=== PATIENT | female | born 1975 | race Two or more races ===

== ENCOUNTER 2025-08-21 17:10 | Emergency (ER) | payer OTHER ==
[~2025-08-21] VITALS: Ht 160 cm; Wt 69.6 kg
--- NOTE | 2025-08-21 17:36 | ECG ---
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
--- NOTE | 2025-08-21 18:46 | ED.PDOC ---
History of Present Illness HPI Comments 50 y/o F presents with c/c of chest pain. Endorsement of 2x week history of pain following initial, unprovoked and atraumatic onset, while at rest in her bed. 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 Pain is stated to radiate to her left shoulder. No modifiers. No r ecent stressors, sick contacts, travel, prior ailments, or pertinent history or events endorsed. Denial of having any shortness of breath, nausea, vomiting, or further associated symptoms. Chief Complaint: Chest Pain Time Seen by MD: 18:20 Reviewed Notes: Nurses Notes, Medications, Allergies Allergies: Coded Allergies: NO KNOWN ALLERGIES (Unverified , 08/21/25) Home Meds Active Scripts Lisinopril (Lisinopril) 5 Mg Tab, 5 MG PO DAILY for 10 Days, #10 TAB Prov:DEBORAH LEA MD 08/21/25 Information Source: Patient Mode of Arrival: Ambulatory Severity: Moderate Timing: Weeks Duration: Since onset Prehospital treatment: None Past Medical History PAST MEDICAL HISTORY: Denies Surgical History: Denies all surgeries LATHE OPERATOR History: No Pertinent LATHE OPERATOR History Social History Smoker: Non-Smoker Alcohol: Denies ETOH Use Drugs: Denies Drug Use Lives In: Home All Other Systems: Reviewed and Negative (Comprehensive systems review obtained and negative except for what is stated in the HPI.) Physical Exam General Appearance: Moderate Distress HEENT: Normal ENT Inspection, Pharynx Normal, TMs Normal Neck: Full Range of Motion, Non-Tender, Normal, Normal Inspection Respiratory: Chest Non-Tender, Lungs Clear, No Accessory Muscle Use, No Respir atory Distress, Normal Breath Sounds Cardiovascular: No Edema, No JVD, No Murmur, No Gallop, Normal Peripheral Pulses, Regular Rate/Rhythm Breast Exam: Deferred Gastrointestinal: No Organomegaly, Non Tender, No Pulsatile Mass, Normal Bowel Sounds, Soft Genitalia: Deferred Pelvic: Deferred Rectal: Deferred Extremities: No calf tenderness, Normal capillary refill, Normal inspection, Normal range of motion, Non-tender, No pedal edema Musculoskeletal : Apperance: Normal Neurologic: Alert, sewing techniques demonstrator II-XII nml as Tested, No Motor Deficits, Normal Affect, Normal Mood, No Sensory Deficits Cerebellar Function: Normal Reflexes: Normal Skin: Dry, Normal Color, Warm Peripheral Pulses: 3+ Radial (R), 3+ Radial (L) Lymphatic: No Adenopathy Was a procedure done? Was a procedure done?: No EKG EKG : Pulse Rate (adult): 79 [place]: Normal Cardiac Rhythm: NSR Block: None Hypertrophy: None ST: Normal Differential Dx Considerations may include: NC, PE, ACS, URI, PNA, angina, anxiety, viral syndrome, gastritis, among others X-Ray, Labs, Meds, VS Vital Signs Date Time Temp Pulse Resp B/P (MAP) Pulse Ox O2 Delivery O2 Flow Rate FiO2 08/21/25 20:29 98.3 72 14 186/103 (130) 100 98.3 08/21/25 18:46 79 08/21/25 18:16 69 08/21/25 17:19 79 08/21/25 17:12 97.7 73 18 180/101 97 97.7 Lab Test 08/21/25 18:13 08/21/25 17:23 Range/Units Troponin I High Sensitivity < 3 L < 3 L </=34 ng/L Patient alert. Came in because of chest discomfort. EKG reviewed does not show any acute changes pain Blood pressure elevated. Cardiac marker within normal limits. She does not take any blood pressure medication. Was given clonidine. Was given prescription of lisinopril. Explained to the patient about exercise diet. Was told to follow up with her primary care physician. Was told to come back if there is any problem. Time of 1ST Reevaluation: 18:50 Reevaluation 1ST: Unchanged Patient Education/Counseling: Diagnosis, Treatment, Need For Follow Up Family Education/Counseling: No Family Present SEPSIS Sepsis Screen Date sepsis recognized/suspect: Aug 21, 2025 Time Sepsis recognized/suspect: 1713 Recent Procedure: No On Antibiotic Therapy: No Respiratory Rate >20: No Heart Rate >90: No Temp<36 C (96.8 F) or >38.3 C: No SBP <90 or MAP <65 mmHG: No New Acute Mental Status Change: No Is the patient on CPAP, BIPAP,: No Physician Orders Electrocardigram (08/21/25 18:11) Electrocardigram (08/21/25 20:11) Vital Signs Date Time Temp Pulse Resp B/P (MAP) Pulse Ox O2 Delivery O2 Flow Rate FiO2 08/21/25 20:29 98.3 72 14 186/103 (130) 100 98.3 08/21/25 18:46 79 08/21/25 18:16 69 08/21/25 17:19 79 08/21/25 17:12 97.7 73 18 180/101 97 97.7 Departure 1 Departure Time of Disposition: 21:13 Impression: Primary Impression: Hypertensive urgency Additional Impression: Musculoskeletal chest pain Disposition: HOME / SELF CARE / HOMELESS Condition: Good e-Prescriptions Lisinopril (Lisinopril) 5 Mg Tab 5 MG PO DAILY for 10 Days, #10 TAB Prov: DEBORAH LEA MD 08/21/25 Discharged With: Self Critical Care Note Critical Care Time?: No Stability Stability form required: No Heart Score Heart Score: Heart Score Response (Comments) Value History Slightly Suspicious 0 EKG Normal 0 Age 45-64 1 Risk Factors No known risk factors 0 Troponin Normal limit 0 Total 1 I personally scribed for DEBORAH LEA MD ([email or web address]) on 08/21/25 at 18:46. Electronically submitted by Jose G Obrien [email or web address]). DEBORAH LEA MD Aug 21, 2025 18:46
[2025-08-21] MEDS ORDERED: LISI-275 PO (21:14)
[2025-08-21] MEDS ORDERED: cloNIDine 0.1 mg/24hr 7 DAY PATCH TD ONE (21:30)
[2025-08-21 22:31] VITALS: BP 170/96; PULSE 67; RESP 14; TEMP 98; O2SAT 100
--- NOTE | 2025-08-22 06:49 | ECG ---
[facility] Test Date: 2025-08-21 Test Time: 18:16:41 Pat Name: RADHA HARRIS Department: [facility] ED Patient ID: [id number] Room: Gender: F Palliative Care Nurse Practitioner: JULIO : 1975 Requested By: LISA SAM Order Number: [id number] Reading MD: Measurements Intervals [place] Rate: 69 P: 43 [place]: 152 QRS: 41 QRSD: 105 T: 60 QT: 375 QTc: 402 Interpretive Statements Sinus rhythm Low voltage, precordial leads Abnormal R-wave progression, early transition Please click the below link to view image of tracing.
--- NOTE | 2025-08-22 06:49 | ECG ---
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
[2025-08-22] MEDS ORDERED: FERR-7 PO (18:46)
== END 2025-08-21 22:32 | disposition home or self-care (01) ==
LOC: EEVIPCON 17:10 → ER 17:10
DX: I16.0 Hypertensive urgency (principal); R07.89 Other chest pain; Z79.899 Other long term (current) drug therapy
CPT/HCPCS: 36415; 84484; 93005

== ENCOUNTER 2025-08-22 10:18 | Inpatient (IN) | payer OTHER ==
[~2025-08-22] VITALS: Ht 160 cm; Wt 84.4 kg
[~2025-08-22 10:18] MED LIST: LISI-275 PO
[2025-08-22 11:11] LABS: Hematocrit 39.0 % (36.0-46.0); Hemoglobin 13.2 g/dL (12.2-16.2); Mean Corpuscular Hemoglobin 29.6 pg (28.0-32.0); Mean Corpuscular Volume 87.1 fL (80.0-100.0); Nucleated Red Blood Cells % 0.1 %
--- NOTE | 2025-08-22 11:19 | ED.PDOC ---
HPI Comments 50-year-old female who comes in with chief complaint of chest pain last night. The patient states that the pain is now radiating to the left arm as well as numbness. The patient was actually seen here at [facility] last night where she had a workup done. At that time the patient's blood pressure was also elevated. She was then worked up and discharged home to follow up with her primary care doctor. She states that the pain has been somewhat persistent. She is having some mild nausea but no fever or chills. The patient states that the pain is a 6/10. Upon arrival, the patient is still stating that the pain is persistent and the blood pressure is still also elevated. Chief Complaint: Chest Pain Time Seen by MD: 10:22 Reviewed Notes: Nurses Notes, Medications, Allergies (No allergies to medications) Allergies: Coded Allergies: NO KNOWN ALLERGIES (Unverified , 08/21/25) Home Meds Active Scripts Lisinopril (Lisinopril) 5 Mg Tab, 5 MG PO DAILY for 10 Days, #10 TAB Prov:DEBORAH LEA MD 08/21/25 Information Source: Patient Mode of Arrival: Ambulatory Severity: Moderate Timing: Days Duration: Since onset Prehospital treatment: None Location: Chest (L) Quality: Squeezing, Pressure Onset: At Rest Cardiac Risk Factors: None PE Risk Factors: None History of: Similar pain in past Modifying Factors: Nothing Associated Signs and Symptoms: N/V (Nausea but no vomiting) Past Medical History PAST MEDICAL HISTORY: HTN Surgical History: Denies all surgeries PAYMENT MANAGER History: No Pertinent PAYMENT MANAGER History Family History Family History: Family hx of DM, Family hx of heart william, Family hx of HTN Social History Smoker: Non-Smoker Alcohol: Denies ETOH Use Drugs: Denies Drug Use Lives In: Home Constitutional: denies: chills, diaphoresis, fatigue, fever, malaise, sweats, weakness, others EENTM: denies: blurred vision, double vision, ear bleeding, ear discharge, ear drainage, ear pain, ear ringing, eye pain, eye redness, hearing loss, mouth pain, mouth swelling, nasal discharge, nose bleeding, nose congestion, nose pain, photophobia, tearing, throat pain, throat swelling, voice changes, others Respiratory: denies: cough, hemoptysis, orthopnea, SOB at rest, shortness of breath, SOB with excertion, stridor, wheezing, others Cardiovascular: denies: chest pain, dizzy spells, diaphoresis, Dyspnea on exertion, edema, irregular heart beat, left arm pain, lightheadedness, palpitations, PND, syncope, others Gastrointestinal: denies: abdomen distended, abdominal pain, blood streaked bowels, constipated, diarrhea, dysphagia, difficulty swallowing, hematemesis, melena, nausea, poor appetite, poor fluid intake, rectal bleeding, rectal pain, vomiting, others Genitourinary: denies: abnormal vagina bleeding, burning, dyspareunia, dysuria, flank pain, frequency, hematuria, incontinence, pain, , vagina discharge, urgency, others Neurological: denies: dizziness, fainting, headache, left sided numbness, left sided weakness, numbness, paresthesia, pre-existing deficit, right sided numbness, right sided weakness, seizure, speech problems, tingling, tremors, weakness, others Musculoskeletal: denies: back pain, gout, joint pain, joint swelling, muscle pain, muscle stiffness, neck pain, others Integumetry: denies: bruises, change in color, change in hair/nails, dryness, laceration, lesions, lumps, rash, wounds, others Allergic/Immunocompromised: denies: Difficulty Healing, Frequent Infections, Hives, Itching, others Hematologic/Lymphatic: denies: anemia, blood clots, easy bleeding, easy bruising, swollen glands, others Endocrine: denies: excessive hunger, excessive sweating, excessive thirst, excessive urination, flushing, intolerance to cold, intolerance to heat, u nexplained weight gain, unexplained weight loss, others Psychiatric: denies: anxiety, bipolar disorder, depression, hopeless, panic disorder, schizophrenia, sleepless, suicidal, others Physical Exam General Appearance: Moderate Distress HEENT: Normal ENT Inspection, Pharynx Normal, TMs Normal Neck: Full Range of Motion, Non-Tender, Normal, Normal Inspection Respiratory: Chest Non-Tender, Lungs Clear, No Accessory Muscle Use, No Respiratory Distress, Normal Breath Sounds Cardiovascular: No Edema, No JVD, No Murmur, No Gallop, Normal Peripheral Pulses, Regular Rate/Rhythm Breast Exam: Deferred Gastrointestinal: No Organomegaly, Non Tender, No Pulsatile Mass, Normal Bowel Sounds, Soft Genitalia: Deferred Pelvic: Deferred Rectal: Deferred Extremities: No calf tenderness, Normal capillary refill, Normal inspection, Normal range of motion, Non-tender, No pedal edema Musculoskeletal : Apperance: Normal Neurologic: Alert, house painter 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 Was a procedure done?: No CP Differential Dx Differential Diagnosis: Angina, NC, Pulmonary Embolus Differential Diagnosis: CHF Differential Diagnosis: Pericarditis X-Ray, Labs, Meds, VS Vital Signs Date Time Temp Pulse Resp B/P (MAP) Pulse Ox O2 Delivery O2 Flow Rate FiO2 08/22/25 14:00 62 15 123/80 (94) 99 08/22/25 13:23 58 08/22/25 13:00 66 15 124/84 (97) 100 08/22/25 12:50 65 08/22/25 12:00 64 14 138/98 (111) 98 08/22/25 11:20 70 16 98 Room Air* 0 21 08/22/25 11:20 98.0 70 16 135/92 (106) 98 98.0 08/22/25 11:20 63 08/22/25 11:19 68 08/22/25 10:23 68 08/22/25 10:21 98.1 83 16 151/101 98 98.1 Lab Test 08/22/25 14:02 08/22/25 11:56 08/22/25 11:27 08/22/25 10:56 Range/Units Troponin I High Sensitivity < 3 L < 3 L < 3 L </=34 ng/L Urine Color Light-yellow Yellow Urine Clarity Clear Clear Urine pH 5.5 5.0-9.0 Urine Specific [place] 1.017 1.001-1.035 Urine Protein Negative Negative Urine Ketones 1+ H Negative Urine Blood 1+ H Negative /uL Urine Nitrite Negative Negative Urine Bilirubin Negative Negative Urine Urobilinogen Normal Negative mg/dL Urine Leukocyte Esterase 1+ Negative /uL Urine RBC 13 0 - 4 /hpf Urine Microscopic WBC 1 0-5 /HPF Urine Squamous Epithelial Cells Few <5 /hpf Urine Bacteria Few H None Seen /hpf Urine Glucose Normal Normal mg/dL White Blood Count 2.6 L 4.4-10.8 10^3/uL Red Blood Count 4.48 4.0-5.20 10^6/uL Hemoglobin 13.2 12.2-16.2 g/dL Hematocrit 39.0 36.0-46.0 % Mean Corpuscular Volume 87.1 80.0-100.0 fL Mean Corpuscular Hemoglobin 29.6 28.0-32.0 pg Mean Corpuscular Hemoglobin Concent 34.0 32.0-36.0 g/dL Red Cell Distribution Width 13.7 11.8-14.3 % Platelet Count 223 140-450 10^3/uL Mean Platelet Volume 7.0 6.9-10.8 fL Neutrophils (%) (Auto) 42.3 37.0-80.0 % Lymphocytes (%) (Auto) 46.3 10.0-50.0 % Monocytes (%) (Auto) 11.1 0.0-12.0 % Eosinophils (%) (Auto) 0.0 0.0-7.0 % Basophils (%) (Auto) 0.3 0.0-2.0 % Neutrophils # (Auto) 1.1 L 1.6-8.6 10 ^3/uL Lymphocytes # (Auto) 1.2 0.4-5.4 10 ^3/uL Monocytes # (Auto) 0.3 0-1.3 10 ^3/uL Eosinophils # (Auto) 0 0-0.8 10 ^3/uL Basophils # (Auto) 0 0-0.2 10 ^3/uL Nucleated Red Blood Cells 0.1 % Sodium Level 140 136-145 mmol/L Potassium Level 3.8 3.5-5.1 mmol/L Chloride Level 105 98-107 mmol/L Carbon Dioxide Level 26 20-31 mmol/L Anion Gap 9 5-15 Blood Urea Nitrogen 16 9-23 mg/dL Creatinine 0.79 0.550-1.02 mg/dL Glomerular Filtration Rate Calc 92 >90 mL/min BUN/Creatinine Ratio 20.3 H 10.0-20.0 Serum Glucose 84 74-106 mg/dL Calcium Level 9.3 8.7-10.4 mg/dL Current Medications Medications (Trade) Dose Ordered Sig/Halie Route Start Time Stop Time Status Last Admin Aspirin 162 mg ONCE ONCE PO 08/22/25 10:45 08/22/25 10:46 DC 08/22/25 11:36 IV Hep-Lock was established. The patient's CBC shows a white blood cell count of 2.6 The rest of the CBC is within normal limits The patient was given aspirin here in the emergency department's The patient's troponin level is negative x2 The patient is admitted We are concerned that the patient has a accelerated hypertension and with the chest pain we are going to keep the patient in the hospital Images Reviewed?: Images reviewed and evaluated by me Time of 1ST Reevaluation: 11:18 Reevaluation 1ST: Unchanged Patient Education/Counseling: Diagnosis, Treatment, Prognosis Family Education/Counseling: No Family Present SEPSIS Sepsis Screen Date sepsis recognized/suspect: Aug 22, 2025 Time Sepsis recognized/suspect: 102 Recent Procedure: No On Antibiotic Therapy: No Respiratory Rate >20: No Heart Rate >90: No Temp<36 C (96.8 F) or >38.3 C: No SBP <90 or MAP <65 mmHG: No New Acute Mental Status Change: No Is the patient on CPAP, BIPAP,: No Physician Orders Heplock Iv (08/22/25 10:44) Material Control Manager (08/22/25 10:44) Blood Pressure (08/22/25 10:44) Pulse Oximetry (08/22/25 10:44) Chest Portable (08/22/25 11:19) Vital Signs Date Time Temp Pulse Resp B/P (MAP) Pulse Ox O2 Delivery O2 Flow Rate FiO2 08/22/25 14:00 62 15 123/80 (94) 99 08/22/25 13:23 58 08/22/25 13:00 66 15 124/84 (97) 100 08/22/25 12:50 65 08/22/25 12:00 64 14 138/98 (111) 98 08/22/25 11:20 70 16 98 Room Air* 0 21 08/22/25 11:20 98.0 70 16 135/92 (106) 98 98.0 08/22/25 11:20 63 08/22/25 11:19 68 08/22/25 10:23 68 08/22/25 10:21 98.1 83 16 151/101 98 98.1 Laboratory Tests Test 08/22/25 10:56 White Blood Count 2.6 10^3/uL (4.4-10.8) L Medications Medications Dose Ordered Sig/Halie Route Start Time Stop Time Status Last Admin Dose Admin Aspirin 162 mg ONCE ONCE PO 08/22/25 10:45 08/22/25 10:46 DC 08/22/25 11:36 Departure 1 Departure Time of Disposition: 16:03 Impression: Primary Impression: Acute chest pain Additional Impressions: Acute myocardial ischemia Accelerated hypertension Disposition: ADMITTED INPATIENT Admit to: Tele Condition: Fair Critical Care Note Critical Care Time?: No Stability Stability form required: Yes Unstable for transfer: Telemetry monitoring (Telemetry monitoring required), ED Physician Assesment (Clinical assesment) Heart Score Heart Score: Heart Score Response (Comments) Value History Moderate Suspicious 1 EKG Repolarization Disturb 1 Age 45-64 1 Risk Factors 1 or 2 risk factors 1 Troponin Normal limit 0 Total 4 GINA URIBE MD Aug 22, 2025 11:19
[2025-08-22 11:20] VITALS: PULSE 70; RESP 16; O2SAT 98
--- NOTE | 2025-08-22 11:22 | ECG ---
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
[2025-08-22 11:24] LABS: Chloride 105 mmol/L (98-107); Potassium 3.8 mmol/L (3.5-5.1); Sodium 140 mmol/L (136-145)
[2025-08-22 11:25] LABS: Anion Gap 9 (5-15); Calcium 9.3 mg/dL (8.7-10.4); Carbon Dioxide 26 mmol/L (20-31)
[2025-08-22 11:30] LABS: BUN/Creatinine Ratio 20.3 (10.0-20.0); Blood Urea Nitrogen 16 mg/dL (9-23); Glucose 84 mg/dL (74-106)
--- NOTE | 2025-08-22 12:02 | DVH ---
CHEST RADIOGRAPH Indication: CP Technique: Single frontal view of the chest was obtained COMPARISON: XY CHEST XRAY 1 VIEW on DOS: 04/05/25 FINDINGS: Lines and Tubes: None Lungs: Clear Pleura: No effusion. No pneumothorax. Cardiomediastinal contours: Unremarkable Bones: Unremarkable IMPRESSION: 1. No acute disease.
--- NOTE | 2025-08-22 13:24 | ECG ---
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
--- NOTE | 2025-08-22 13:52 | ECG ---
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
[2025-08-22 15:18] LABS: Urine Protein, UAD Negative (Negative)
--- NOTE | 2025-08-22 17:09 | DVHHP2 ---
Admitting Diagnosis: chest pain History of Present Illness 50-year-old female who comes in with chief complaint of chest pain last night. The patient states that the pain is now radiating to the left arm as well as numbness. The patient was actually seen here at [facility] last night where she had a workup done. At that time the patient's blood pressure was also elevated. She was then worked up and discharged home to follow up with her primary care doctor. She states that the pain has been somewhat persistent. She is having some mild nausea but no fever or chills. The patient states that the pain is a 6/10. Upon arrival, the patient is still stating that the pain is persistent and the blood pressure is still also elevated. While in the emergency department the patient was evaluated by the provider, As per provider: Labs, vital signs, and imagining monitored. Patient will be admitted for further evaluation and treatment. I discussed admission with the patient/family and is in agreement to treatment plan Allergies: Coded Allergies: NO KNOWN ALLERGIES (Unverified , 08/21/25) Home Meds Active Scripts Lisinopril (Lisinopril) 5 Mg Tab, 5 MG PO DAILY for 10 Days, #10 TAB Prov:DEBORAH LEA MD 08/21/25 Reported Medications Ferrous Sulfate (Iron) 325 Mg Tab, 325 MG PO DAILY, TAB 08/22/25 Current Medications Current Medications Medications (Trade) Dose Ordered Sig/Halie Route PRN Reason Start Time Stop Time Status Last Admin Temazepam (Restoril) 15 mg QHSP PRN PO FOR INSOMNIA 08/22/25 22:00 Enoxaparin Sodium (Lovenox) 40 mg DAILY SC 08/23/25 10:00 Pantoprazole Sodium (Protonix) 40 mg DAILY IV 08/23/25 10:00 08/23/25 09:05 Lisinopril (Zestril Tablet) 5 mg DAILY PO 08/23/25 10:00 08/23/25 18:05 DC 08/23/25 09:05 Lisinopril (Zestril Tablet) 10 mg BID PO 08/23/25 22:00 Review of Systems Constitutional: denies chills, denies fever, denies malaise Eyes: denies eye pain, denies vision change ENT: denies ear pain, denies headache, denies nasal congestion, denies painful swallowing, denies voice change Cardiovascular: denies chest pain, denies edema, denies orthopnea, denies palpitations, denies paroxysmal nocturnal dyspnea Respiratory: denies cough, denies shortness of breath Gastrointestinal: denies constipation, denies diarrhea, denies nausea, denies vomiting Genitourinary: denies dysuria, denies frequent urination, denies urethral discharge Musculoskeletal: denies back pain, denies joint pain, denies muscle pain Skin: denies bruising, denies itching, denies rash Neurological: denies focal weakness, denies headache, denies sensory changes Psychiatric: denies anxiety, denies depression Endocrine: denies polydipsia, denies polyuria Hematologic/Lymphatic: denies easy bleeding, denies easy bruising, denies enlarged lymph nodes Allergic/Immunologic: denies allergy, denies hives Vital Signs Vital Signs Date Time Temp Pulse Resp B/P (MAP) Pulse Ox O2 Delivery O2 Flow Rate FiO2 08/23/25 17:00 97.8 75 17 112/74 (87) 97 97.8 08/23/25 08:00 Room Air* 0 21 Physical Exam General Appearance: alert, no distress HEENT: EOMI, PERRLA, normal external inspect of ears, no icterus, no nasal drainage Neck: no carotid bruit, no jugular venous distention (JVD), no lymphadenopathy Chest: normal thorax Respiratory: clear to auscultation, normal air movement Cardiovascular: regular rate and rhythm, no diastolic murmur, no jugular venous distention (JVD), no rub, no systolic murmur Abdominal: soft, no hepatomegaly, no mass, no splenomegaly, no tenderness Genitourinary: grossly normal external Musculoskeletal: no joint tenderness, no swelling Extremities: normal pulses, no calf tenderness, no clubbing, no cyanosis, no edema Skin: no bruising, no jaundice, no rash Neurological: alert, No focal deficit SEPSIS Sepsis Screen Date sepsis recognized/suspect: Aug 22, 2025 Time Sepsis recognized/suspect: 102 Recent Procedure: No On Antibiotic Therapy: No Respiratory Rate >20: No Heart Rate >90: No Temp<36 C (96.8 F) or >38.3 C: No SBP <90 or MAP <65 mmHG: No New Acute Mental Status Change: No Is the patient on CPAP, BIPAP,: No Physician Orders Heplock Iv (08/22/25 10:44) Courtroom Clerk (08/22/25 10:44) Blood Pressure (08/22/25 10:44) Pulse Oximetry (08/22/25 10:44) Chest Portable (08/22/25 11:19) Admit (08/22/25 17:04) Code Status (08/22/25 17:04) Hydrocodone-Acet 5/325mg Tab ([place] (08/22/25 17:15) Temazepam (Restoril) (08/22/25 22:00) Ondansetron Hcl (Zofran) (08/22/25 17:15) Docusate Sodium Capsule (Colace Capsule) (08/22/25 17:15) Enoxaparin Sodium (Lovenox) (08/23/25 10:00) Cardiac Diet-2gna,Lofat,Lochol (08/22/25 Dinner) Carotid Duplx W Color Dop (08/22/25 17:04) Condition: Stable (08/22/25 17:04) Acetaminophen Tablet (Tylenol Tablet) (08/22/25 17:15) Morphine Sulfate Injection (08/22/25 17:15) Sequential Compression Device (08/22/25 ) *Consult Dr. Franko Tyler (08/22/25 17:04) Pantoprazole (Protonix) (08/23/25 10:00) Nitroglycerin Sublingual (Ntrostat Subli (08/22/25 17:15) Morphine Sulfate Injection (08/22/25 17:15) Stat Ekg For Chest Pain (08/22/25 17:04) Notify Md Of Changes From Base (08/22/25 17:04) Sales And Marketing Executive For 24 Hours (08/22/25 17:04) Emergency Dysrhythmia Protocol (08/22/25 17:04) Rhythm Strips Once Every Shift (08/22/25 17:04) Oxygen By Nasal Cannula (08/22/25 17:04) Hydralazine Injection (Apresoline Inject (08/22/25 17:15) * [employer] Service [employer] Mechanic Consult (08/22/25 ) Lisinopril Tablet (Zestril Tablet) (08/23/25 22:00) L Breast Ultrasound (08/23/25 18:02) Vital Signs Date Time Temp Pulse Resp B/P (MAP) Pulse Ox O2 Delivery O2 Flow Rate FiO2 08/23/25 17:00 97.8 75 17 112/74 (87) 97 97.8 08/23/25 13:00 98.0 82 17 123/81 (95) 97 98.0 08/23/25 11:33 76 17 91 08/23/25 09:05 141/96 08/23/25 08:45 97.9 70 18 141/96 (111) 97 97.9 08/23/25 08:00 Room Air* 0 21 08/23/25 08:00 70 08/23/25 05:00 97.8 53 18 119/82 (94) 99 97.8 08/23/25 01:00 98.0 82 17 123/81 (95) 97 98.0 08/23/25 01:00 98.1 64 18 118/81 (93) 98 98.1 08/22/25 21:00 97.8 68 18 125/90 (102) 98 97.8 08/22/25 20:00 Room Air* 0 21 08/22/25 20:00 81 08/22/25 18:16 97.8 77 18 150/102 (118) 97 97.8 08/22/25 18:16 67 18 97 Room Air* 0 21 08/22/25 17:31 76 14 134/87 (103) 97 08/22/25 17:00 76 14 134/87 (103) 97 08/22/25 16:00 65 15 123/86 (98) 99 08/22/25 15:00 67 14 119/84 (96) 99 08/22/25 14:00 62 15 123/80 (94) 99 08/22/25 13:23 58 08/22/25 13:00 66 15 124/84 (97) 100 08/22/25 12:50 65 08/22/25 12:00 64 14 138/98 (111) 98 08/22/25 11:20 70 16 98 Room Air* 0 21 08/22/25 11:20 98.0 70 16 135/92 (106) 98 98.0 08/22/25 11:20 63 08/22/25 11:19 68 08/22/25 10:23 68 08/22/25 10:21 98.1 83 16 151/101 98 98.1 Laboratory Tests Test 08/22/25 10:56 08/23/25 07:11 White Blood Count 2.6 10^3/uL (4.4-10.8) L 2.5 10^3/uL (4.4-10.8) L Medications Medications Dose Ordered Sig/Halie Route Start Time Stop Time Status Last Admin Dose Admin Lisinopril 5 mg DAILY PO 08/23/25 10:00 08/23/25 18:05 DC 08/23/25 09:05 Pantoprazole Sodium 40 mg DAILY IV 08/23/25 10:00 08/23/25 09:05 Results Labs Test 08/23/25 07:11 08/22/25 14:02 08/22/25 11:27 Range/Units White Blood Count 2.5 L 4.4-10.8 10^3/uL Red Blood Count 4.56 4.0-5.20 10^6/uL Hemoglobin 13.5 12.2-16.2 g/dL Hematocrit 39.2 36.0-46.0 % Mean Corpuscular Volume 86.0 80.0-100.0 fL Mean Corpuscular Hemoglobin 29.6 28.0-32.0 pg Mean Corpuscular Hemoglobin Concent 34.4 32.0-36.0 g/dL Red Cell Distribution Width 13.6 11.8-14.3 % Platelet Count 205 140-450 10^3/uL Mean Platelet Volume 6.7 L 6.9-10.8 fL Neutrophils (%) (Auto) 46.1 37.0-80.0 % Lymphocytes (%) (Auto) 41.5 10.0-50.0 % Monocytes (%) (Auto) 12.1 H 0.0-12.0 % Eosinophils (%) (Auto) 0.0 0.0-7.0 % Basophils (%) (Auto) 0.3 0.0-2.0 % Neutrophils # (Auto) 1.1 L 1.6-8.6 10 ^3/uL Lymphocytes # (Auto) 1.0 0.4-5.4 10 ^3/uL Monocytes # (Auto) 0.3 0-1.3 10 ^3/uL Eosinophils # (Auto) 0 0-0.8 10 ^3/uL Basophils # (Auto) 0 0-0.2 10 ^3/uL Nucleated Red Blood Cells 0.2 % Sodium Level 140 136-145 mmol/L Potassium Level 4.5 3.5-5.1 mmol/L Chloride Level 106 98-107 mmol/L Carbon Dioxide Level 25 20-31 mmol/L Anion Gap 9 5-15 Blood Urea Nitrogen 15 9-23 mg/dL Creatinine 0.88 0.550-1.02 mg/dL Glomerular Filtration Rate Calc 81 >90 mL/min BUN/Creatinine Ratio 17.0 10.0-20.0 Serum Glucose 77 74-106 mg/dL Hemoglobin A1c 5.1 <5.7 % A1C Calcium Level 9.2 8.7-10.4 mg/dL Total Bilirubin 0.9 0.2-1.0 mg/dL Aspartate Amino Transferase (AST) 26 13-40 U/L Alanine Aminotransferase (ALT) 27 7-40 U/L Alkaline Phosphatase 75 46-116 U/L Total Protein 9.6 H 5.7-8.2 g/dL Albumin 4.2 3.2-4.8 g/dL Triglycerides Level 87 < 150 mg/dL Cholesterol Level 187 < 200 mg/dL LDL Cholesterol 137 H < 100 mg/dL HDL Cholesterol 40 40-59 mg/dL Beta HCG, Quantitative 2.8 1.5-4.2 mIU/mL Troponin I High Sensitivity < 3 L </=34 ng/L Urine Color Light-yellow Yellow Urine Clarity Clear Clear Urine pH 5.5 5.0-9.0 Urine Specific [place] 1.017 1.001-1.035 Urine Protein Negative Negative Urine Ketones 1+ H Negative Urine Blood 1+ H Negative /uL Urine Nitrite Negative Negative Urine Bilirubin Negative Negative Urine Urobilinogen Normal Negative mg/dL Urine Leukocyte Esterase 1+ Negative /uL Urine RBC 13 0 - 4 /hpf Urine Microscopic WBC 1 0-5 /HPF Urine Squamous Epithelial Cells Few <5 /hpf Urine Bacteria Few H None Seen /hpf Urine Glucose Normal Normal mg/dL Urine Test Negative Negative Microbiology Date/Time Source Procedure Growth Status 08/23/25 06:25 Nose MRSA Screen - Final Complete Plan 1. Unstable angina Monitor, cardiology consult, echocardiogram, plan for stress test, PPI, DVT prophylaxis, lipid panel, monitor on EKG 2. Obesity Monitor 3. Benign essential HTN Monitor, antihypertensives Plan discussed with: Patient, Other KRAFT,EVELYNE M CEILING INSTALLER Aug 22, 2025 17:09
[2025-08-22] MEDS ORDERED: hydrALAZINE HCL 20 MG/ML VL IV PRN (17:15)
[2025-08-22] MEDS ORDERED: NITROGLYCERIN 0.4 MG SL TAB SL PRN (17:15)
[2025-08-22] MEDS ORDERED: DOCUSATE SOD 100 MG CAP PO PRN (17:15)
[2025-08-22] MEDS ORDERED: MORPHINE SULFATE INJ 2 MG/ml SYRG IV PRN ×2 (17:15)
[2025-08-22] MEDS ORDERED: ONDANSETRON HCL 4 MG/2 ML VIAL IV PRN (17:15)
[2025-08-22 18:16] VITALS: BP 150/102; PULSE 67; PULSE 77; RESP 18; TEMP 97.8; O2SAT 97
[2025-08-22] MEDS ORDERED: FERR-7 PO (18:46)
[2025-08-22] MEDS: HYDROcodone-ACET 5/325MG TAB PO PRN (18:56)
[2025-08-22 20:00] VITALS: PULSE 81
[2025-08-22 21:00] VITALS: BP 125/90; PULSE 68; RESP 18; TEMP 97.8; O2SAT 98
[2025-08-22] MEDS ORDERED: TEMAZEPAM 15 MG CAP PO PRN (22:00)
--- NOTE | 2025-08-22 23:20 | DVH ---
Carotid Duplex Clinical History: angina Comparison: None Technique: Duplex Doppler evaluation of the extracranial carotid and vertebral arteries including color Doppler and spectral/pulsed waveform analysis was performed. Findings: RIGHT SIDE: The peak systolic velocities are 80 cm/s in the CCA, 65 cm/s in the ICA. The ICA/CCA ratio is 0.8. The external carotid artery is patent with peak systolic velocity of 87 cm/s proximally. There is appropriate antegrade flow in the right vertebral artery. LEFT SIDE: The peak systolic velocities are 73 cm/s in the CCA, 71 cm/s in the ICA. The ICA/CCA ratio is 1.0. The external carotid artery is patent with peak systolic velocity of 82 cm/s proximally. There is appropriate antegrade flow in the left vertebral artery. IMPRESSION: 1. No hemodynamically significant stenosis noted in the right carotid system. 2. No hemodynamically significant stenosis noted in the left carotid system. Reference: Radiology 2003; 229:340-346 Normal ICA PSV is <125 cm/sec and no plaque or intimal thickening is visible sonographically additional criteria include ICA/CCA PSV ratio <2.0 and ICA EDV <40 cm/sec <50% ICA stenosis ICA PSV is <125 cm/sec and plaque or intimal thickening is visible sonographically additional criteria include ICA/CCA PSV ratio <2.0 and ICA EDV <40 cm/sec 50-69% ICA stenosis ICA PSV is 125-230 cm/sec and plaque is visible sonographically additional criteria include ICA/CCA PSV ratio of 2.0-4.0 and ICA EDV of 40-100 cm/sec 70% ICA stenosis but less than near occlusion ICA PSV is >230 cm/sec and visible plaque and luminal narrowing are seen at mar-scale and color Dopp ler ultrasound (the higher the Doppler parameters lie above the threshold of 230 cm/sec, the greater the likelihood of severe disease) additional criteria include ICA/CCA PSV ratio >4 and ICA EDV >100 cm/sec
[2025-08-23] VITALS (10 sets, daily range): BP systolic 112–150; BP diastolic 74–98; PULSE 53–82; RESP 16–18; TEMP 97.2–98.1; O2SAT 97–99
[2025-08-23 07:36] LABS: Hematocrit 39.2 % (36.0-46.0); Hemoglobin 13.5 g/dL (12.2-16.2); Mean Corpuscular Hemoglobin 29.6 pg (28.0-32.0); Mean Corpuscular Volume 86.0 fL (80.0-100.0); Nucleated Red Blood Cells % 0.2 %
[2025-08-23 07:46] LABS: Alanine Aminotransferase 27 U/L (7-40); Albumin 4.2 g/dL (3.2-4.8); Alkaline Phosphatase 75 U/L (46-116); Anion Gap 9 (5-15); BUN/Creatinine Ratio 17.0 (10.0-20.0); Blood Urea Nitrogen 15 mg/dL (9-23); Calcium 9.2 mg/dL (8.7-10.4); Carbon Dioxide 25 mmol/L (20-31); Chloride 106 mmol/L (98-107); Glucose 77 mg/dL (74-106); Potassium 4.5 mmol/L (3.5-5.1); Sodium 140 mmol/L (136-145)
[2025-08-23 07:47] LABS: Bilirubin, Total 0.9 mg/dL (0.2-1.0); Total Protein 9.6 g/dL (5.7-8.2)
[2025-08-23] MEDS: ACETAMINOPHEN 325 MG TAB PO PRN (08:18)
[2025-08-23] MEDS: LISINOPRIL 5 MG TAB PO SCH ×2 (09:05→21:46)
[2025-08-23] MEDS: PANTOPRAZOLE 40 MG/10 ML VIAL INJ IV SCH (09:05)
[2025-08-23] MEDS: ENOXAPARIN SOD 40 MG/0.4 ML SYRINGE SC SCH (09:10)
--- NOTE | 2025-08-23 10:28 | DVHINCON2 ---
Date of service: Aug 23, 2025 History of Present Illness HPI 50-year-old female presented with few days of chest discomfort. Chest discomfort was tapping nature and was associated with radiation to the back and left arm numbness. Did have headaches with that. Was found to have high blood pressure on admission. Cardiology is involved for cardiac aspects of care. Serial high sensitive troponin has remained negative. Denies previous cardiac history. 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 As per patient, she did have EKG performed few days back and there was question if it revealed delta waves. Patient also complains of occasional palpitation when lying down (going back for only few months). Denies loss of consciousness. She also mentions occasions of vertigo (room spinning). Does have good baseline functional capacity. Never glover d cardiac workup before. Denies exertional component to the picture. Home Meds Active Scripts Lisinopril (Lisinopril) 5 Mg Tab, 5 MG PO DAILY for 10 Days, #10 TAB Prov:DEBORAH LEA MD 08/21/25 Reported Medications Ferrous Sulfate (Iron) 325 Mg Tab, 325 MG PO DAILY, TAB 08/22/25 Past Medical History Others Past medical history includes iron deficiency anemia. There is question about hypertension (was never on any medications prior to this visit). 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 Denies surgeries. Quit smoking few years back (was never long-term smoker). Denies substance abuse. Denies alcohol abuse. Family history includes father with history of heart failure had pacemaker implantation. There is also history of hypertension and diabetes in family. She is perimenopausal. Patient Family History: Diabetes mellitus G8 MOTHER Hypertension G8 MOTHER Pacemaker G8 FATHER Smoker: Quit Alocohol: None Drugs: None Review of Systems Constitutional: No symptom reported Ears, Nose, & Throat: No symptom reported Cardiovascular: Chest Pain Hemotologic/Lymphatic: Anemia All Other Systems Fourteen point review of system was performed. Relevant findings as per above and as per HPI. Otherwise negative. H&P Exam Vital Signs Vital Signs Date Time Temp Pulse Resp B/P (MAP) Pulse Ox O2 Delivery O2 Flow Rate FiO2 08/23/25 09:05 141/96 08/23/25 08:45 97.9 70 18 97 97.9 08/22/25 20:00 Room Air* 0 21 General Appeara: Well developed Head Exam: Normal inspection Eye Exam: bilateral eye PERRL Mouth: Normal Inspection Pulmonary/Respiratory: Lungs clear Cardiovascular/Chest: Regular rate, Systolic murmur Peripheral Pulses: 2+ carotid (R), 2+ carotid (L), 2+ femoral (R), 2+ femoral (L) Abdominal Exam: Normal bowel sounds, Soft Neuro/Mental St: Alert, Oriented Appearance: Appropriate appearance Eye contact/ Speech: Cooperative Labs/Xrays Labs Test 08/23/25 07:11 08/22/25 14:02 08/22/25 11:27 Range/Units White Blood Count 2.5 L 4.4-10.8 10^3/uL Red Blood Count 4.56 4.0-5.20 10^6/uL Hemoglobin 13.5 12.2-16.2 g/dL Hematocrit 39.2 36.0-46.0 % Mean Corpuscular Volume 86.0 80.0-100.0 fL Mean Corpuscular Hemoglobin 29.6 28.0-32.0 pg Mean Corpuscular Hemoglobin Concent 34.4 32.0-36.0 g/dL Red Cell Distribution Width 13.6 11.8-14.3 % Platelet Count 205 140-450 10^3/uL Mean Platelet Volume 6.7 L 6.9-10.8 fL Neutrophils (%) (Auto) 46.1 37.0-80.0 % Lymphocytes (%) (Auto) 41.5 10.0-50.0 % Monocytes (%) (Auto) 12.1 H 0.0-12.0 % Eosinophils (%) (Auto) 0.0 0.0-7.0 % Basophils (%) (Auto) 0.3 0.0-2.0 % Neutrophils # (Auto) 1.1 L 1.6-8.6 10 ^3/uL Lymphocytes # (Auto) 1.0 0.4-5.4 10 ^3/uL Monocytes # (Auto) 0.3 0-1.3 10 ^3/uL Eosinophils # (Auto) 0 0-0.8 10 ^3/uL Basophils # (Auto) 0 0-0.2 10 ^3/uL Nucleated Red Blood Cells 0.2 % Sodium Level 140 136-145 mmol/L Potassium Level 4.5 3.5-5.1 mmol/L Chloride Level 106 98-107 mmol/L Carbon Dioxide Level 25 20-31 mmol/L Anion Gap 9 5-15 Blood Urea Nitrogen 15 9-23 mg/dL Creatinine 0.88 0.550-1.02 mg/dL Glomerular Filtration Rate Calc 81 >90 mL/min BUN/Creatinine Ratio 17.0 10.0-20.0 Serum Glucose 77 74-106 mg/dL Calcium Level 9.2 8.7-10.4 mg/dL Total Bilirubin 0.9 0.2-1.0 mg/dL Aspartate Amino Transferase (AST) 26 13-40 U/L Alanine Aminotransferase (ALT) 27 7-40 U/L Alkaline Phosphatase 75 46-116 U/L Total Protein 9.6 H 5.7-8.2 g/dL Albumin 4.2 3.2-4.8 g/dL Troponin I High Sensitivity < 3 L </=34 ng/L Urine Color Light-yellow Yellow Urine Clarity Clear Clear Urine pH 5.5 5.0-9.0 Urine Specific [place] 1.017 1.001-1.035 Urine Protein Negative Negative Urine Ketones 1+ H Negative Urine Blood 1+ H Negative /uL Urine Nitrite Negative Negative Urine Bilirubin Negative Negative Urine Urobilinogen Normal Negative mg/dL Urine Leukocyte Esterase 1+ Negative /uL Urine RBC 13 0 - 4 /hpf Urine Microscopic WBC 1 0-5 /HPF Urine Squamous Epithelial Cells Few <5 /hpf Urine Bacteria Few H None Seen /hpf Urine Glucose Normal Normal mg/dL Assessment/Plan Plan 50-year-old female presented with few days of chest discomfort. Chest discomfort was tapping nature and was associated with radiation to the back and left arm numbness. Did have headaches with that. Was found to have high blood pressure on admission. Cardiology is involved for cardiac aspects of care. Serial high sensitive troponin has remained negative. Denies previous cardiac history. 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 As per patient, she did have EKG performed few days back and there was question if it revealed delta waves. Patient also complains of occasional palpitation when lying down (going back for only few months). Denies loss of consciousness. She also mentions occasions of vertigo (room spinning). Does have good baseline functional capacity. Never had cardiac workup before. Denies exertional component to the picture. It seems on arrival to Emergency room her blood pressure was high. Not in acute distress. No JVD. Mucosa is pink and wet. No carotid bruit. Lungs are clear to auscultation. Cardiac: Regular, no thrill/gallop. Abdomen is soft. Bowel sound is positive. No gross mass/hepatomegaly. No peripheral edema. Dorsalis pedis is 2+ bilateral Past medical history includes iron deficiency anemia. There is question about hypertension (was never on any medications prior to this visit). 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 Denies surgeries. Quit smoking few years back (was never long-term smoker). Denies substance abuse. Denies alcohol abuse. Family history includes father with his tory of heart failure had pacemaker implantation. There is also history of hypertension and diabetes in family. She is perimenopausal. Creatinine: 0.79 - 0.8 Potassium: 3.8 - 4.5 Troponin (high sensitive): <3 - <3 - <3 Chest x-ray revealed: IMPRESSION: 1. No acute disease. Carotid sono revealed: IMPRESSION: 1. No hemodynamically significant stenosis noted in the right carotid system. 2. No hemodynamically significant stenosis noted in the left carotid system. EKG revealed sinus rhythm with no ST-T changes (EKG performed as outpatient was seen: Available in patients phone: poor quality but also questions presence of delta wave?) No Delta wave was seen in EKGs performed since admission Telemetry reveals sinus rhythm Patient is a 50-year-old female who presented with atypical chest discomfort. Acute coronary syndrome is not considered. Blood pressure was high and hypertensive urgency/emergency could have contributed to the clinical picture. There is question about delta wave/palpitations in the past history. Presentation is not in favor of acute coronary syndrome. Long-term monitor and a stress test could further risk stratify patient. Complains of left breast heaviness and enlargement. Chest pain, atypical Hypertensive emergency Palpitations History of abnormal EKG Old history of ITP History of anemia Cardiac suggestion for management: Manage on telemetry Follow-up electrolytes and kidney function tests and correct abnormalities Evaluation of left breast heaviness and enlargement as per primary team and PCP Request for echocardiogram Exercise treadmill stress test Long-term monitor can be arranged as outpatient Further evaluation and management depends on the above and clinical course Thank you for consultation A total of 75 minutes was spent reviewing the patient record, examining the patient, making a diagnostic and therapeutic plan, discussing this plan with medical personnel, following up on diagnostic studies and following the patient for clinical stability excluding any and all procedures. At least 50% of this time was spent in direct, [id number] contact. Thank you for allowing me to participate in this patient's care. Further recommendations will depend on patient's clinical course. Please do not hesitate to contact me if you have any questions or concerns. This medical document was created using electronic medical record system with [employer] computerized dictation system. Although this document has been carefully reviewed, there may still be some phonetic and typographical errors. These areas are purely typographical due to the imperfection of the software programs, and do not reflect any compromise in the patient's medical care. Plan discussed with: Patient, Other (nurse) PAIGE FRAUSTO MD Aug 23, 2025 10:27
--- NOTE | 2025-08-23 11:21 | DVHPN2 ---
Progress Note - Dictate Date Seen: Aug 23, 2025 Medical Necessity Reason Pt with a Central, PICC or Fol: No vital signs Vital Sign Date Time Temp Pulse Resp B/P (MAP) Pulse Ox O2 Delivery O2 Flow Rate FiO2 08/23/25 09:05 141/96 08/23/25 08:45 97.9 70 18 97 97.9 08/23/25 08:00 Room Air* 0 21 Total Intake and Output 08/22/25 08/22/25 08/23/25 15:00 23:00 07:00 Intake Total 550 ml Balance 550 ml medications Current Medications Medications Dose Ordered Sig/Halie Route Start Time Stop Time Status Last Admin Dose Admin Acetaminophen/ Hydrocodone Bitart 1 tab Q4HP PRN PO 08/22/25 17:15 08/22/25 18:56 1 TAB Temazepam 15 mg QHSP PRN PO 08/22/25 22:00 Ondansetron HCl 4 mg Q4HP PRN IV 08/22/25 17:15 Docusate Sodium 100 mg BIDPRN PRN PO 08/22/25 17:15 Enoxaparin Sodium 40 mg DAILY SC 08/23/25 10:00 Acetaminophen 650 mg Q6HP PRN PO 08/22/25 17:15 08/23/25 08:18 650 MG Morphine Sulfate 2 mg Q4HPRN PRN IV 08/22/25 17:15 Pantoprazole Sodium 40 mg DAILY IV 08/23/25 10:00 08/23/25 09:05 40 MG Nitroglycerin 0.4 mg Q5MINP PRN SL 08/22/25 17:15 Morphine Sulfate 2 mg Q30M PRN IV 08/22/25 17:15 Lisinopril 5 mg DAILY PO 08/23/25 10:00 08/23/25 09:05 5 MG Hydralazine HCl 10 mg Q6HP PRN IV 08/22/25 17:15 laboratory and microbiology Laboratory Tests 08/23/25 07:11 Test 08/23/25 07:11 Range/Units Serum Glucose 77 74-106 mg/dL Problem List 1. Unstable angina Monitor, cardiology consult, echocardiogram, plan for stress test, PPI, DVT prophylaxis, lipid panel, monitor on EKG 2. Obesity Monitor 3. Benign essential HTN Monitor, antihypertensives Assessment/Plan Subjective: Patient is awake and alert. Objective: Patient was admitted for unstable angina. Patient was seen by cardiology. Stress test is in progress. Troponin levels were negative. Patient was complaining of a breast mass. Plan: Ultrasound of breast of mass complete. Stress test. Monitor EKG. Plan discussed with: Patient, Other EVELYNE LIZARRAGA NP Aug 23, 2025 11:21
[2025-08-23 11:47] LABS: Triglycerides 87 mg/dL (< 150)
[2025-08-23 11:49] LABS: Cholesterol 187 mg/dL (< 200)
[2025-08-23 11:51] LABS: HDL Cholesterol 40 mg/dL (40-59)
--- NOTE | 2025-08-23 12:58 | DVHCARD ---
Cardiology Stress Test [place] Treadmill Stress Test [place] Referring MD: MD Jayson Protocol: Edward (without cardiolite) Reason for referral: Chest Pain Target heart Rate:@85%: 146 Percent MPHR: 172 METS: 10.10 Resting Heart rate: 76 Resting Blood Pressure: 150/98 Exercise Heart Rate: 162 Exercise Blood Pressure: 238/91 Reason for Termination of Test: Completion of Protocol Baseline EKG: NSR Stress EKG: Sinus tachycardia w/o evidence of ST-T wave segment changes Functional Capacity: Good Normal Heart Rate Response: Adequate Blood Pressure Response: Hypertensive Clinical response: Non-ischemic Arrhythmia?: No Cardiolite Injected?: No ST-T Changes: Non/Minimal Probability of Inducible [place]: Low Comments: Uneventful Edward protocol Date of Service: Aug 23, 2025 Billing Provider: MIKE DE LA FUENTE Cardiology Common Codes: PROCEDURE ONLY Treadmill w/o Cardiolite: [id number], INTERP, RPT MIKE DE LA FUENTE Aug 23, 2025 12:58
--- NOTE | 2025-08-23 18:49 | DVH ---
EXAM: US L BREAST ULTRASOUND INDICATION: lump left breast TECHNIQUE: Grayscale and color Doppler sonographic imaging evaluation of the region of concern. COMPARISON: None FINDINGS: Large solid hypoechoic possible mass versus complicated fluid collection with mild surrounding hypere robert. Posterior acoustic enhancement. 12:00, 3.1 x 2 x 2.2 cm. No suspicious left axillary lymphadeno ricky. IMPRESSION: 1. Indeterminate large solid hypoechoic mass versus complicated fluid collection with mild surroundin g hyperemia measuring up to 3.1 cm at 12:00. 2. BI-RADS 0-incomplete. 3. Recommendation: Consider diagnostic mammogram for full appropriate workup in conjunction with phys ical exam. Underlying malignancy not excluded given the solid appearance however differential include s granulomatous mastitis versus abscess.
[2025-08-24 01:00] VITALS: BP 112/67; PULSE 60; RESP 14; TEMP 97; O2SAT 99
[2025-08-24 05:00] VITALS: BP 107/73; PULSE 81; RESP 14; TEMP 97.2; O2SAT 95
--- NOTE | 2025-08-24 07:38 | DVHSR ---
APPROVED REPORT EXAM: Two-dimensional and M-mode echocardiogram with Doppler and color Doppler. Blood Pressure: 119/82 mmHg INDICATION Chest Pain RISK FACTORS Height: 63, Weight: 177 DIMENSIONS LVDd4.8 (3.8-5.7cm)LA (2D)3.2 (1.9-4.0cm)Aortic Root3.4 (2.0-3.7cm) LVDs3.3 (2.5-4.0cm)LA (MM) (1.9-4.0cm)Aortic Cusp Exc1.7 (1.5-2.0cm) EF (%) 60.0 (55-70%)Rt. Atrium3.9 (1.9-4.0cm)Asc. Aorta cm Mitral Valve MitralMitral Stenosis E wave0.68m/sMV Mean GR.mmHg A wave0.74m/sMV Peak GR.mmHg E/A ratio0.92D MVAcm2 DECEL [id number] 1/2 Crdr58hm IVRTmsDop MVA2.91cm2 Aortic Valve Aortic ValveAortic Stenosis V10.96m/Aroldo Mean GR.3mmHg V21.16m/Aroldo Peak GR.5mmHg LVOT Diameter2.1 (1.8-2.4cm)Doppler AVA2.86cm2 Tricuspid Valve TR Velocity1.94m/s [id number] Conclusion Ventricle: Left ventricle was normal-sized with normal systolic function. LVEF was around 65%. The re was no wall motion abnormality. Diastolic function was considered normal. Right ventricle was normal-sized with normal systolic function. Both atria were normal-sized. Aortic valve was not well visualized. There was trace aortic insufficiency. There was no aortic ethan nosis. There was trace mitral/tricuspid regurgitation. Pulmonary valve was not visualized. There was no pericardial effusion. Right ventricular systolic pressure was assessed normal at 18 mm Hg.
--- NOTE | 2025-08-24 07:42 | DVHPN2 ---
Progress Note - Dictate Date Seen: Aug 24, 2025 Medical Necessity Reason Pt with a Central, PICC or Fol: No vital signs Vital Sign Date Time Temp Pulse Resp B/P (MAP) Pulse Ox O2 Delivery O2 Flow Rate FiO2 08/24/25 05:00 97.2 81 14 107/73 (84) 95 97.2 08/23/25 20:00 Room Air* 0 21 Total Intake and Output 08/23/25 08/23/25 08/24/25 15:00 23:00 07:00 Intake Total 950 ml 400 ml Balance 950 ml 400 ml medications Current Medications Medications Dose Ordered Sig/Halie Route Start Time Stop Time Status Last Admin Dose Admin Acetaminophen/ Hydrocodone Bitart 1 tab Q4HP PRN PO 08/22/25 17:15 08/22/25 18:56 1 TAB Temazepam 15 mg QHSP PRN PO 08/22/25 22:00 Ondansetron HCl 4 mg Q4HP PRN IV 08/22/25 17:15 Docusate Sodium 100 mg BIDPRN PRN PO 08/22/25 17:15 Enoxaparin Sodium 40 mg DAILY SC 08/23/25 10:00 Acetaminophen 650 mg Q6HP PRN PO 08/22/25 17:15 08/23/25 08:18 650 MG Morphine Sulfate 2 mg Q4HPRN PRN IV 08/22/25 17:15 Pantoprazole Sodium 40 mg DAILY IV 08/23/25 10:00 08/23/25 09:05 40 MG Nitroglycerin 0.4 mg Q5MINP PRN SL 08/22/25 17:15 Morphine Sulfate 2 mg Q30M PRN IV 08/22/25 17:15 Hydralazine HCl 10 mg Q6HP PRN IV 08/22/25 17:15 Lisinopril 10 mg BID PO 08/23/25 22:00 laboratory and microbiology Laboratory Tests 08/23/25 07:11 Test 08/23/25 07:11 Range/Units Serum Glucose 77 74-106 mg/dL Assessment/Plan 50-year-old female presented with few days of chest discomfort. Chest discomfort was tapping nature and was associated with radiation to the back and left arm numbness. Did have headaches with that. Was found to have high blood pressure on admission. Cardiology is involved for cardiac aspects of care. Serial high sensitive troponin has remained negative. Denies previous cardiac history. 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 As per patient, she did have EKG performed few days back and there was question if it revealed delta waves. Patient also complains of occasional palpitation when lying down (going back for only few months). Denies loss of consciousness. She also mentions occasions of vertigo (room spinning). Does have good baseline functional capacity. Never had cardiac workup before. Denies exertional component to the picture. It seems on arrival to Emergency room her blood pressure was high. Not in acute distress. No JVD. Mucosa is pink and wet. No carotid bruit. Lungs are clear to auscultation. Cardiac: Regular, no thrill/gallop. Abdomen is soft. Bowel sound is positive. No gross mass/hepatomegaly. No peripheral edema. Dorsalis pedis is 2+ bilateral Past medical history includes iron deficiency anemia. There is question about hypertension (was never on any medications prior to this visit). 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 Denies surgeries. Quit smoking few years back (was never long-term smoker). Denies substance abuse. Denies alcohol abuse. Family history includes father with history of heart failure had pacemaker implantation. There is also history of hypertension and diabetes in family. She is perimenopausal. Creatinine: 0.79 - 0.8 Potassium: 3.8 - 4.5 Troponin (high sensitive): <3 - <3 - <3 Chest x-ray revealed: IMPRESSION: 1. No acute disease. Carotid sono revealed: IMPRESSION: 1. No hemodynamically significant stenosis noted in the right carotid system. 2. No hemodynamically significant stenosis noted in the left carotid system. Breast Ultrasound revealed: IMPRESSION: 1. Indeterminate large solid hypoechoic mass versus complicated fluid collection with mild surrounding hyperemia measuring up to 3.1 cm at 12:00. 2. BI-RADS 0-incomplete. 3. Recommendation: Consider diagnostic mammogram for full appropriate workup in conjunction with physical exam. Underlying malignancy not excluded given the solid appearance however differential includes granulomatous mastitis versus abscess. EKG revealed sinus rhythm with no ST-T changes (EKG performed as outpatient was seen: Available in patients phone: poor quality but also questions presence of delta wave?) No Delta wave was seen in EKGs performed since admission Telemetry reveals sinus rhythm Echocardiogram revealed: Ventricle: Left ventricle was normal-sized with normal systolic function. LVEF was around 65%. There was no wall motion abnormality. Diastolic function was considered normal. Right ventricle was normal-sized with normal systolic function. Both atria were normal-sized. Aortic valve was not well visualized. There was trace aortic insufficiency. There was no aortic stenosis. There was trace mitral/tricuspid regurgitation. Pulmonary valve was not visualized. There was no pericardial effusion. Right ventricular systolic pressure was assessed normal at 18 mm Hg. TST: Sinus tachycardia w/o evidence of ST-T wave segment changes Patient is a 50-year-old female who presented with atypical chest discomfort. Acute coronary syndrome is not considered. Blood pressure was high and hypertensive urgency/emergency could have contributed to the clinical picture. There is question about delta wave/palpitations in the past history. Presentation is not in favor of acute coronary syndrome. Long-term monitor and a stress test could further risk stratify patient. Complains of left breast heaviness and enlargement. TST and Echocardiogram were non-revealing Chest pain, atypical Hypertensive emergency Palpitations History of abnormal EKG Old history of ITP History of anemia Cardiac suggestion for management: Manage on telemetry Follow-up electrolytes and kidney function tests and correct abnormalities Evaluation of left breast findings as per primary team and PCP Long-term monitor can be arranged as outpatient Cardiac jose, can be followed as outpatient Further evaluation and management depends on the above and clinical course A total of 55 minutes was spent reviewing the patient record, examining the patient, making a diagnostic and therapeutic plan, discussing this plan with medical personnel, following up on diagnostic studies and following the patient for clinical stability excluding any and all procedures. At least 50% of this time was spent in direct, [id number] contact. Thank you for allowing me to participate in this patient's care. Further recommendations will depend on patient's clinical course. Please do not hesitate to contact me if you have any questions or concerns. This medical document was created using electronic medical record system with [facility] computerized dictation system. Although this document has been carefully reviewed, there may still be some phonetic and typographical errors. These areas are purely typographical due to the imperfection of the software programs, and do not reflect any compromise in the patient's medical care. Plan discussed with: Patient, Other (nurse) PAIGE FRAUSTO MD Aug 24, 2025 07:42
[2025-08-24 08:00] VITALS: PULSE 69
[2025-08-24 09:00] VITALS: BP 121/77; PULSE 66; RESP 18; TEMP 97.6; O2SAT 98
[2025-08-24] MEDS ORDERED: LISI10TA34 PO (12:24)
--- NOTE | 2025-08-24 12:26 | DVHDS2 ---
Discharge Summary Date of Admission Aug 22, 2025 at 17:04 Date of Discharge: Aug 24, 2025 Labs/Diagnostic Data: Laboratory Results Test 08/23/25 07:11 08/22/25 14:02 08/22/25 11:27 White Blood Count 2.5 10^3/uL (4.4-10.8) Red Blood Count 4.56 10^6/uL (4.0-5.20) Hemoglobin 13.5 g/dL (12.2-16.2) Hematocrit 39.2 % (36.0-46.0) Mean Corpuscular Volume 86.0 fL (80.0-100.0) Mean Corpuscular Hemoglobin 29.6 pg (28.0-32.0) Mean Corpuscular Hemoglobin Concent 34.4 g/dL (32.0-36.0) Red Cell Distribution Width 13.6 % (11.8-14.3) Platelet Count 205 10^3/uL (140-450) Mean Platelet Volume 6.7 fL (6.9-10.8) Neutrophils (%) (Auto) 46.1 % (37.0-80.0) Lymphocytes (%) (Auto) 41.5 % (10.0-50.0) Monocytes (%) (Auto) 12.1 % (0.0-12.0) Eosinophils (%) (Auto) 0.0 % (0.0-7.0) Basophils (%) (Auto) 0.3 % (0.0-2.0) Neutrophils # (Auto) 1.1 10 ^3/uL (1.6-8.6) Lymphocytes # (Auto) 1.0 10 ^3/uL (0.4-5.4) Monocytes # (Auto) 0.3 10 ^3/uL (0-1.3) Eosinophils # (Auto) 0 10 ^3/uL (0-0.8) Basophils # (Auto) 0 10 ^3/uL (0-0.2) Nucleated Red Blood Cells 0.2 % Sodium Level 140 mmol/L (136-145) Potassium Level 4.5 mmol/L (3.5-5.1) Chloride Level 106 mmol/L (98-107) Carbon Dioxide Level 25 mmol/L (20-31) Anion Gap 9 (5-15) Blood Urea Nitrogen 15 mg/dL (9-23) Creatinine 0.88 mg/dL (0.550-1.02) Glomerular Filtration Rate Calc 81 mL/min (>90) BUN/Creatinine Ratio 17.0 (10.0-20.0) Serum Glucose 77 mg/dL (74-106) Hemoglobin A1c 5.1 % A1C (<5.7) Calcium Level 9.2 mg/dL (8.7-10.4) Total Bilirubin 0.9 mg/dL (0.2-1.0) Aspartate Amino Transferase (AST) 26 U/L (13-40) Alanine Aminotransferase (ALT) 27 U/L (7-40) Alkaline Phosphatase 75 U/L (46-116) Total Protein 9.6 g/dL (5.7-8.2) Albumin 4.2 g/dL (3.2-4.8) Triglycerides Level 87 mg/dL (< 150) Cholesterol Level 187 mg/dL (< 200) LDL Cholesterol 137 mg/dL (< 100) HDL Cholesterol 40 mg/dL (40-59) Beta HCG, Quantitative 2.8 mIU/mL (1.5-4.2) Troponin I High Sensitivity < 3 ng/L (</=34) Urine Color Light-yellow (Yellow) Urine Clarity Clear (Clear) Urine pH 5.5 (5.0-9.0) Urine Specific [place] 1.017 (1.001-1.035) Urine Protein Negative (Negative) Urine Ketones 1+ (Negative) Urine Blood 1+ /uL (Negative) Urine Nitrite Negative (Negative) Urine Bilirubin Negative (Negative) Urine Urobilinogen Normal mg/dL (Negative) Urine Leukocyte Esterase 1+ /uL (Negative) Urine RBC 13 /hpf (0 - 4) Urine Microscopic WBC 1 /HPF (0-5) Urine Squamous Epithelial Cells Few /hpf (<5) Urine Bacteria Few /hpf (None Seen) Urine Glucose Normal mg/dL (Normal) Urine Test Negative (Negative) Other Laboratory Tests 08/23/25 07:11 Brief Hx & Hospital Course: 50-year-old female who comes in with chief complaint of chest pain last night. The patient states that the pain is now radiating to the left arm as well as numbness. The patient was actually seen here at [facility] last night where she had a workup done. At that time the patient's blood pressure was also elevated. She was then worked up and discharged home to follow up with her primary care doctor. She states that the pain has been somewhat persistent. She is having some mild nausea but no fever or chills. The patient states that the pain is a 6/10. Upon arrival, the patient is still stating that the pain is persistent and the blood pressure is still also elevated. Patient was admitted on 08/22/2025 for atypical chest pain. Chest pain most likely related to hypertensive urgency. Patient was seen by cardiology. Estimated ejection fraction is 65% noted on echocardiogram. Patient has a history of palpitations and ITP. Per cardiology chest pain is atypical and acute coronary syndrome was ruled out. Patient also had complaints of left breast mass. Breast ultrasound was done and a 3.1 x 2 x 2.2 cm mass was noted on the left breast. Patient was instructed to have follow-up mammogram. Patient had elevated LDL of 137. Patient was instructed to modify diet and to discuss possible initiation of cholesterol medication upon discharge. Patient's blood pressure medication lisinopril was increased to 10 mg p.o. twice daily. Patient was discharged home and instructed to follow-up with her PCP in 1 week. The patient received proper medical treatment and medications. Vital signs, Imaging and Laboratory Work was monitored daily. All consults recommendations were followed as provided. There were no complaints or new complaints upon discharge, all questions and concerns were answered. Patient was advised to return to the ER or call 911 if any headaches, dizziness, shortness of breath, chest pain, bleeding, fevers, or worsening of medical condition. Patient/Family was counseled about treatment plan, medications, possible side effects, patient verbalized understanding. All questions were answered to the best of my ability. The patient symptoms improved and they are okay to be DC. Condition at Discharge: Stable Final Diagnosis/Problems List Atypical chest pain, most likely caused by uncontrolled hypertension left breast mass- needs outpatient diagnostic mammogram obesity benign essential hypertension f/u cardiology for outpatient holter monitor hx palpitations Discharge Disposition: Home Discharge Instruct/Medications Diet: Cardiac 2g Na,low cholest Activity: No Restrictions, As Tolerated Follow Up/Referral: pcp 1 week Scheduled Ferrous Sulfate (Iron), 325 MG PO DAILY, (Reported) Lisinopril (Lisinopril), 10 MG PO BID Discontinued Medications Lisinopril (Lisinopril), 5 MG PO DAILY Discharge Statement: "Patient was advised to return to the ER or call 911 if any headaches, dizziness, shortness of breath, chest pain, abdominal pain, bleeding, fevers, or worsening of medical condition. Patient was counseled about treatment plan, medications, possible side effects, patientverbalized understanding. All questions were answered to the best of my ability. This discharge took greater then 30 minutes in planning, reviewing documentation, counseling the patient, and discussing with other team members." ASSESSMENT ASSESSMENT Assessment Atypical chest pain, most likely caused by uncontrolled hypertension left breast mass- needs outpatient diagnostic mammogram f/u cardiology for outpatient holter monitor hx palpitations EVELYNE LIZARRAGA NP Aug 24, 2025 12:26
[2025-08-24 13:00] VITALS: BP 104/72; PULSE 78; RESP 16; TEMP 98; O2SAT 97
[2025-08-24 14:00] VITALS: BP 104/72; PULSE 78; RESP 16; TEMP 98; O2SAT 97
== END 2025-08-24 14:25 | disposition home or self-care (01) | DRG 199 ==
LOC: ER 10:18 → EEVIPCON 10:18 → OVERFLOW 17:04 → TELE-CENTR 17:09
PROVIDERS: ADMIT Nurse Practitioner; ATTEND Nurse Practitioner
DX: I16.0 Hypertensive urgency (principal); I20.0 Unstable angina; E66.9 Obesity, unspecified; I10 Essential (primary) hypertension; N95.9 Unspecified menopausal and perimenopausal disorder; N63.20 Unspecified lump in the left breast, unspecified quadrant; Z83.3 Family history of diabetes mellitus; Z82.49 Family history of ischemic heart disease and other diseases of the circulatory system; Z86.2 Personal history of diseases of the blood and blood-forming organs and certain disorders involving the immune mechanism; Z87.891 Personal history of nicotine dependence; Z79.899 Other long term (current) drug therapy; Z68.31 Body mass index [BMI] 31.0-31.9, adult
CPT/HCPCS: 36415; 71045; 76642; 80048; 80053; 80061; 81001; 81025; 83036; 84484; 84702; 85025; 87081; 93005; 93017; 93306; 93886; G0378; J2470